=== PATIENT | female | born 1995 | race Caucasian/White ===

== ENCOUNTER 2023-03-22 08:54 | Outpatient (CLI) | payer MEDICAID, SELFPAY ==
--- NOTE | 2023-03-22 09:15 | CRLHL7_ITS ---
For Patients: As a result of the Cures Act, medical imaging exams and procedure reports are released immediately into your electronic medical record. You may view this report before your referring provider. If you have questions, please contact your health care provider. INDICATION: First trimester scan, establish dates. COMPARISON: None. TECHNIQUE: Real-time taylor-scale imaging of the pelvis was performed. FINDINGS: Sonographic imaging demonstrates a single living intrauterine gestation. The embryo demonstrates a regular cardiac rate measuring 171 beats per minute. The embryo`s crown-rump length measurement of 2.2 cm corresponds to a gestational age of 8 weeks 6 days with a sonographic due date of 10/26/2023. There is a normal-appearing yolk sac. There are no gross abnormalities noted within the embryo at this early state of development. The gestational sac has a normal appearance. There is a 1.6 x 0.6 x 0.5 cm perigestational hemorrhage. The amount of fluid within the sac appears appropriate for gestational age. The cervix is closed. The myometrium appears normal. The ovaries are of normal size. Corpus luteal cyst left ovary measuring 2.3 cm. There are no suspicious fluid collections noted in the cul-de-sac. IMPRESSION: Single living intrauterine with sonographic gestational age 8 weeks 6 days and sonographic due date 10/26/2023. Small perigestational hemorrhage measuring 1.6 x 0.6 x 0.5 cm. Dictated by Rell Krause MD @ 03/22/2023 11:15:11 AM (Electronically Signed)
== END 2023-03-22 08:55 | disposition home or self-care (01) ==
LOC: US 08:55
PROVIDERS: Visit Provider Registered Nurse
DX: Z34.91 Encounter for supervision of normal pregnancy, unspecified, first trimester (principal); O20.9 Hemorrhage in early pregnancy, unspecified; Z3A.08 8 weeks gestation of pregnancy
CPT/HCPCS: 76817; 82565; 82570; 84156; 84450; 84460; 84520; 86592; 86703; 86762; 86787; 86850; 86900; 86901; 87086; 87491; 87591

== ENCOUNTER 2023-03-22 09:54 | Outpatient (CLI) | payer MEDICAID, SELFPAY ==
[2023-03-22 15:10] LABS: Chlamydia DNA Amplified* NOT DETECTED (No Detected); GC DNA Amplified* NOT DETECTED (No Detected)
== END 2023-03-22 09:55 | disposition home or self-care (01) ==
PROVIDERS: Visit Provider Registered Nurse
DX: Z34.91 Encounter for supervision of normal pregnancy, unspecified, first trimester (principal); Z3A.09 9 weeks gestation of pregnancy
CPT/HCPCS: 82565; 82570; 84156; 84450; 84460; 84520; 86592; 86703; 86762; 86787; 86803; 86850; 86900; 86901; 87086; 87340; 87491; 87591

== ENCOUNTER 2023-06-07 08:05 | Outpatient (CLI) | payer MEDICAID, SELFPAY ==
--- NOTE | 2023-06-07 08:15 | CRLHL7_ITS ---
For Patients: As a result of the Century Cures Act, medical imaging exams and procedure reports are released immediately into your electronic medical record. You may view this report before your referring provider. If you have questions, please contact your health care provider. INDICATION: Evaluate anatomy. COMPARISON: 03/22/2023 TECHNIQUE: Real time taylor scale imaging of the fetus was performed as well as color Doppler analysis of the umbilical vessels. FINDINGS: Sonographic imaging demonstrates a single living intrauterine gestation. Fetus demonstrates a regular cardiac rate of 141 beats per minute. Fetus has a breech position. The placenta lies anterior without evidence of placenta previa. The placenta lies 7.5 cm from the internal cervical os. Amniotic fluid volume appears normal. Single deepest vertical pocket: 6.5 cm. The cervix is closed and measures 4.4 cm in length. The composite ultrasound gestational age is calculated at 20 weeks 0 days with an estimated sonographic due date of 10/25/2023. The estimated weight is 337 grams which lies at the 64th %. The following biometric measurements were obtained: Biparietal diameter: 4.4 cm/19 weeks 3 days 29th% Head circumference: 17.2 cm/19 weeks 5 days 37th% Abdominal circumference: 15.3 cm/20 weeks 4 days 67th% Femur length: 3.2 cm/19 weeks 6 days 45th% The HC/AC ratio measures: 1.12 range (1.08-1.25) On anatomic survey, there is a normal appearance of the cerebral ventricles, cavum septi pellucidi, cisterna magna and cerebellum. The nose, lips, and facial profile appear normal. The cervical, thoracic and lumbar spine are well visualized and appear normal. There is a normal four-chamber heart view and the left and right ventricular outflow tracts appear normal. The diaphragm and stomach appear normal. The kidneys and bladder also appear normal. There is a normal three-vessel cord and cord insertion site. The four extremities appear normal. IMPRESSION: Normal OB ultrasound exam with concordance of clinical and sonographic dating. No intrinsic abnormalities noted on anatomic survey. Dictated by Rell Krause MD @ 06/10/2023 11:43:54 AM (Electronically Signed)
== END 2023-06-07 08:06 | disposition home or self-care (01) ==
LOC: US 08:06
PROVIDERS: Visit Provider Obstetrics & Gynecology
DX: Z34.92 Encounter for supervision of normal pregnancy, unspecified, second trimester (principal); Z3A.20 20 weeks gestation of pregnancy
CPT/HCPCS: 76805

== ENCOUNTER 2023-08-02 08:31 | Outpatient (CLI) | payer OTHER, SELFPAY | END 2023-08-02 08:32 | disposition home or self-care (01) | LOC: NFLDREF 08-06 09:31 | PROVIDERS: Visit Provider Obstetrics & Gynecology | DX: Z34.90 Encounter for supervision of normal pregnancy, unspecified, unspecified trimester (principal) | CPT/HCPCS: 86592 ==

== ENCOUNTER 2023-09-26 16:22 | Outpatient (CLI) | payer OTHER, SELFPAY ==
[2023-09-26] VITALS (7 sets, daily range): BP systolic 120–133; BP diastolic 75–82; PULSE 80–83; TEMP 36.6; O2SAT 94
[2023-09-26 17:21] LABS: Total Protein Urine 12 mg/dL
[2023-09-26 17:22] LABS: Creatinine Urine 67.8 mg/dL
[2023-09-26 17:41] LABS: Aspartate Amino Transferase* 25 U/L (12-35); Creatinine* 0.4 mg/dL (0.5-1.5); Estimated Glomerular Filt Rate 136 ml/min; Hematocrit 34.6 % (33.0-51.0); Mean Corpuscular HGB Conc 35 gm/dL (32-36); Mean Corpuscular Hemoglobin 33 pg (26-34); Mean Corpuscular Volume 95 fL (80-100); Platelet Count* 201 K/uL (140-440); Red Blood Count 3.64 m/uL (4.00-5.20); White Blood Count* 13.55 K/uL (4.50-11.00)
[2023-09-26 17:42] LABS: Alanine Aminotransferase* 11 U/L (4-35); Blood Urea Nitrogen* 8 mg/dL (5-24)
[2023-09-26 17:51] LABS: Slide Review Reflex No
--- NOTE | 2023-09-30 22:33 | PC.OBNST ---
NST Note NST Note Start: 09/30/23 22:27 Freq: Status: Active Protocol: Document 09/26/23 19:00 MMB (Rec: 09/30/23 22:32 MMB [id number]) NST Note 2 Para (# of births) 1 EDC 10/26/23 Gestational Age In Weeks & Days 36 Weeks & 2 Days Patient Presented with Complaint(s) of Pain If Pain, describe location Right upper quadrant Reactive Yes Appropriate for Gestational Age Yes RN Braxton Romo RN Date 09/26/23 Reactive Yes Appropriate for Gestational Age Yes KYE Morrison RN Date 09/26/23 OB NST charge Yes Complete NST Note via Write Note Yes The provider's electronic signature indicates the NST is reactive/appropriate for gestational age. *Note to provider: If an addendum is required, open the patient's chart and click on the note under the Nurse/Allied Health tab.
== END 2023-09-26 19:10 | disposition home or self-care (01) ==
LOC: OB OUT 16:23 → OB 16:31
PROVIDERS: Visit Provider Obstetrics & Gynecology
DX: O47.03 False labor before 37 completed weeks of gestation, third trimester (principal); Z3A.36 36 weeks gestation of pregnancy
CPT/HCPCS: 36415; 59025; 82565; 82570; 84156; 84450; 84460; 84520; 85027; 99213

== ENCOUNTER 2023-10-02 11:57 | Outpatient (CLI) | payer OTHER, SELFPAY ==
[2023-10-03 21:18] LABS: Strep B DNA Probe Negative (Negative)
[2023-10-03 21:19] LABS: Strep B Susceptibility Needed? No
== END 2023-10-02 11:58 | disposition home or self-care (01) ==
LOC: NFLDREF 11:57
PROVIDERS: Visit Provider Obstetrics & Gynecology
DX: Z34.90 Encounter for supervision of normal pregnancy, unspecified, unspecified trimester (principal)
CPT/HCPCS: 87081; 87653

== ENCOUNTER 2023-10-21 05:03 | Inpatient (IN) | payer OTHER, SELFPAY ==
[2023-10-21] VITALS (30 sets, daily range): BP systolic 103–131; BP diastolic 59–91; PULSE 52–88; RESP 16–18; TEMP 36.3–36.7; O2SAT 96–99; BMI 34.1
[2023-10-21] MEDS: LACTATED RINGERS 1000 ML 1,000 ML 225 ML IV (05:52)
[2023-10-21] MEDS: SCOPOLAMINE 1 MG/3 DAY PATCH 1 PATCH TRANSDERMA (05:54)
[2023-10-21 06:02] LABS: Basophils Percent Auto 0.2 % (0.0-3.0); Eosinophils Percent Auto 1.3 % (0.0-7.0); Hematocrit 38.9 % (33.0-51.0); Hemoglobin* 13.1 gm/dL (12.0-16.0); Immature Granulocytes Pct Auto 1.3 %; Lymphocytes Percent Auto 15.1 % (20-44); Mean Corpuscular HGB Conc 34 gm/dL (32-36); Mean Corpuscular Hemoglobin 32 pg (26-34); Mean Corpuscular Volume 95 fL (80-100); Monocytes Percent Auto 5.3 % (0.0-11.0); Neutrophils Percent Auto 76.8 % (42.0-72.0); Platelet Count* 193 K/uL (140-440); RDW Coefficient of Variation % 11.9 % (11.5-15.5); Red Blood Count 4.08 m/uL (4.00-5.20); Slide Review Reflex No; White Blood Count* 14.79 K/uL (4.50-11.00)
--- NOTE | 2023-10-21 07:00 | P.OBHP_ITS ---
OB - H&P: HPI History of Present Illness Chief complaint: CSection Narrative: Kristy Silva is a 28 year old female here at 39w2d for scheduled repeat delivery. Her full H&P was dictated by me on 10/02/2023, please see note for full details. Active movement. Denies LOF, vaginal bleeding or abnormal vaginal discharge. Some [place] contractions. Specific Issues/Plans G 2 P 1001 Boyfriend: Rico. Son: Michael. Baby: Boy! [place] name. 1. History of due to arrest of dilation * Desires repeat section - scheduled 10/22 2. History of gestational hypertension Baseline preeclampsia labs drawn today. BUN 7, Creatinine low at 0.4 , AST 56.., ALT 16, P/C ratio 0.20. AST on 04/19/23 20. Recommend daily baby aspirin starting at 12 weeks 3. Father of baby with sister who had a baby with a fatal trisomy abnormality. * 04/19/2023: No increased risk for aneuploidy, male. 4. Cervical dysplasia * History of abnormal paps with multiple colposcopies. * 03/22/2023: HSIL with +HPV (other type) * Colposcopy and biopsy at 19w6d: 2 biopsies. One not sufficient for evaluation, 2nd was benign * Colposcopy in 3rd trimester: 08/13 with Suppes, insufficient but consistent with previous colpo, no bx * Treatment : [] * Gardasil : [] 5. Secondary cellulitis from a bug bite, left lateral ankle (08/02) Treated with cephalexin COVID: Completed, not boosted. Recommended. Tdap: Given, 08/30/23 Flu: Declined RSV: Declined H&P: 10/02/[address] Key Review of Systems Status of ROS: Reports: 6 or more systems reviewed and unremarkable except as noted in History and below [facility] Medical History (Updated 10/21/23 @ 07:18 by Lianna Key MD) History of abnormal cervical Pap smear ?Z87.42 - Personal history of other diseases of the female genital tract (ICD-10) Gestational hypertension ?O13.9 - Gestational [-induced] hypertension without significant proteinuria, unspecified trimester (ICD-10) Surgical History S/P section ?Z98.891 - History of uterine scar from previous surgery (ICD-10) Family History Family/Other Trisomy Social History What is your current living situation?: I presently have a place to live Problems where you live: no known problems In the past 12 months, utilities in danger of being shut off: no In past 12 months, lack of transportation kept you from medical appts, meetings, work, or getting things needed for daily living: no In the past 12 mos, have been you worried that your food would run out before you had money to buy more?: never true In the past 12 mos, the food you bought just didn't last and you didn't have money to buy more?: never true Smoking Status: Never smoker How often does anyone, including family, friends and others, physically hurt you : never How often does anyone, including family, friends and others, insult or talk down to you: never How often does anyone, including family, friends and others, threaten you with harm: never How often does anyone, including family, friends and others, scream or curse at you: never Little interest or pleasure in doing things: not at all Feeling down, depressed, or hopeless: not at all Meds Home Medications and Allergies Home Medications Medication Instructions Recorded Confirmed Type docosahexaenoic acid 200 mg 200 mg PO DAILY 03/22/23 10/21/23 History capsule ( DHA) docusate sodium 100 mg capsule 100 mg PO BID PRN 03/22/23 10/21/23 History (Colace) aspirin 81 mg tablet,delayed 81 mg PO QDAY 04/19/23 10/21/23 History release Allergies Allergy/AdvReac Type Severity Reaction Status Date / Time No Known Drug Allergies Allergy Verified 10/11/23 09:23 OB - H&P: Exam Physical Exam: Vital signs: Temp Pulse Resp BP 98.0 F 88 16 122/75 10/21/23 06:04 10/21/23 05:51 10/21/23 06:04 10/21/23 05:51 Narrative: Physical exam: General: No acute distress Psych: Alert and oriented x3, full affect HEENT: Normocephalic, atraumatic Lungs: Unlabored breathing Neuro: No focal deficit. Mentating appropriately Abdomen: Gravid. Cephalic presentation. Soft, nontender. No distension, rebound or guarding Pelvic exam: Deferred OB - Results Labs Labs: Short CBC 10/21/23 Range/Units 05:40 WBC 14.79 H (4.50-11.00) K/uL Hgb 13.1 (12.0-16.0) gm/dL Hct 38.9 (33.0-51.0) % Plt Count 193 (140-440) K/uL Assessment and Plan Assessment and plan (1) : Status: Acute (2) History of abnormal cervical Pap smear: Problem comment: History of abnormal pap: Yes: May 2019 colposcopy: Benign for a Pap that was ASC-H. December 2020: Pap smear: NIL, negative HPV. 03/22/23: HSIL, +HPV other types Status: Acute Plan CS Consent The patient was consented for section and blood. She understands that the three main categories of risk include bleeding, infection, and damage to surrounding structures. Regarding infection, she understands that we will be delivering appropriate antibiotics, however that the risk of infection following section still is approximately 5%. She understands that though the risk is very low that there is always a risk of damage to the bladder, uterus, ovaries, fallopian tubes, bowels, ureters, or even the fetus. She understands that most injuries can be addressed at the time of surgery, however, such an injury may require additional surgeries to fix. Lastly, she understands that a section carries a risk of bleeding, and that while this bleeding can be addressed with multiple medical and surgical modalities, that there is the possibility of needing a blood transfusion. She reports she would accept a blood transfusion understanding the risks of a 1/200,000 risk of Hepatitis and 1/2,000,000 risk of HIV as well as the risk of having an allergic reaction to the blood products. She further understands that this reaction is typically mild, however can be severe including respiratory distress and necessitating ICU-level care. Lastly, she understands that a section does increase risks for future pregnancies and deliveries including, but not limited to, the risk of uterine rupture or placenta accreta. - Hgb/plt on 10/21/2023: 13.193 - Plan: will proceed with scheduled repeat CD
--- NOTE | 2023-10-21 07:20 | PM.OBPRCCS ---
OB Delivery Proc Additional Procedures Procedure Details: DELIVERY BY SECTION Date of Service: 10/21/2023 Delivery time: 0752 Summary: Admitted for scheduled repeat delivery at 39 weeks 2 days, repeat lower uterine transverse section, Pfannenstiel, Closed with suture, QBL 536 cc, no complications, Findings: Minimal filmy adhesions, normal uterus, bilateral ovaries and tubes 8,9 Weight 3565 g Primary Indication: Previous delivery x1 Declined TOLAC Procedures: Repeat lower uterine transverse section Specimens Removed: Placenta Surgeon: Lianna Key MD Explosives Truck Driver Surgeon: None Anesthesia: Spinal, TAP Report: Prophylactic antibiotic, 2 g of Ancef was given before incision. After arrival to the operating room patient was placed in the supine position with left lateral tilt after administration of spinal anesthesia. Laparotomy A pfannenstiel incision was made through the anterior abdominal wall with #10 scalpel approximately 2 cm above the pubic symphysis. The incision was extended sharply with the #10 scalpel through the subcutaneous tissue to the level of fascia. The fascia was entered sharply with a #10 scalpel (Pfannenstiel) in the midline and extended in semi-elliptical fashion with Leiva scissor. The underlying muscles were dissected off the overlying fascia by grasping the superior aspect of fascia with two iman clamps and blunt and sharp dissection were used along the midline. The fascia was further from rectus muscle with Leiva scissor and/or cautery. In similar fashion, the lower aspect of fascia was also grasped with two Iman clamps and both blunt and sharp dissection was used to separate fascia from rectus muscle. The rectus muscles were in the midline bluntly with digits. The peritoneum was then entered sharply with Emily and Metsheba. The peritoneal incision was then extended superiorly and inferiorly under direct visualization with care being taken to avoid bladder and bowel. Minimal filmy adhesions were noted. The peritoneal incision was enlarged bluntly by lateral traction from the surgeon's and assistant men's soccer coach's hand. Melchor retractor was inserted into the abdomen. Delivery A bladder flap was developed by grasping with American forcep and enter with Metzenbaun scissor. Then sharp and blunt dissection with Metzenbaum scissor and fingers were performed. A low transverse hysterotomy was made then with #10 scalpel and extended laterally and cephalad with fingers in a low transverse fashion with Manu Mancini technique with care being taken to avoid injury to the fetus. The amniotic cavity (membrane) was then entered with spontaneous rupture of membrane, and the amniotic fluid was noted to be clear, fetus was delivered cephalic. With delivery of the baby, no extension was noted. Placenta was delivered spontaneously with steady traction on cord and manual separation of placenta from uterine wall. Closure Uterine cavity was cleaned after placental delivery with lap sponge x 3. The hysterotomy was closed in two layers with stitches using 0 vicryl with continuous locking stitches and a 2nd imbricating layer with 0 Monocryl. Hemostasis was achieved as needed with electrocautery. The ovaries/tubes/uterine surface were evaluated. They were found to be normal. Melchor retractor removed and hemostasis was confirmed again. Fascia was closed with running stitches using 0 PDS. Subcutaneous layer was irrigated. Hemostasis was checked for and found to be adequate. The subcutaneous layer was closed with running 2-0 Vicryl sutures. The skin was closed with monocryl subcuticular sutures . The incision was cleaned and covered with Exofin and Mepilex dressing and the procedure considered terminate at this time. Intraoperative Complications: None QBL: 536 cc Uterotonics: 40u of pitocin Disposition: The patient tolerated the procedure well. She was recovered in Obstetric PACU for close monitoring in stable condition, with a contracted uterus and normal transvaginal bleeding. The was sent to mother?s bedside. The placenta was not sent to pathology. Debrief with OR team performed at the conclusion of the procedure. Procedure Time Seen by Provider: 07:20 Date of procedure: 10/21/23 Procedure Done: Global Will [facility] bill your pro fee for this procedure?: Yes Blood Loss Measurement Type: QBL (536) Bakri Used: No Urine Output (mL): 250 Surgeon: Lianna Key MD Anesthesia Type: Spinal Pathology: none sent Surgery Debrief Performed: Yes Condition: stable Disposition: floor
[2023-10-21] MEDS: CEFAZOLIN 2 GM INJ IVP (07:29)
[2023-10-21] MEDS: LACTATED RINGERS 1000 ML 1,000 ML 125 ML IV ×2 (07:45→13:46)
--- NOTE | 2023-10-21 08:52 | W.ANESCHARGE ---
Anesthesia Charges Start Date/Time Anesthesia Start Date: 10/21/23 Anesthesia Start Time: 07:24 Stop Date/Time Anesthesia Stop Date: 10/21/23 Anesthesia Stop Time: 08:49
--- NOTE | 2023-10-21 10:32 | W.PM.NB ---
Nerve Block Nerve Block Time Seen by Provider: 08:40 Date Seen: 10/21/23 Type of block requested by surgeon for post-operative analgesia: TAP Side: bilateral Time out performed: Yes Verification of patient name: Yes Verification of date of : Yes Site marking: site marked Name of person performing procedure: Radames Continuous monitoring Was continuous monitoring of O2 sat, B/P, farm equipment maintenance supervisor, recorded every 15 minutes?: Yes Procedure Checklist: sterile prep, needles and gloves Ultrasound guided. Images saved: Yes Medications given in 5ml increments after negative aspiration: Marcaine %: 0.25 mL: 30 Needle gauge: 20 and Exparel mL: 10 Patient tolerated procedure well: Yes Additional comments: Needle noted adjacent to nerve Block Charges Block Charge (with Pro Fee): TAP Bilateral Use of Ultrasound Machine for Block: Yes- US Guidance/pain block
--- NOTE | 2023-10-21 10:32 | W.ANESCHARGE ---
Anesthesia Charges Start Date/Time Anesthesia Start Date: 10/21/23 Anesthesia Start Time: 07:24 Stop Date/Time Anesthesia Stop Date: 10/21/23 Anesthesia Stop Time: 08:49
[2023-10-21] MEDS: miSOPROStoL 800 MCG/4 TABLET PR (10:38)
[2023-10-21] MEDS: OXYTOCIN 30 unit/500 ML in NS 30 UNIT/500 ML BAG 200 UNIT IVPB (10:55)
[2023-10-21] MEDS: diphenhydrAMINE 50 MG/ML inj 12.5 MG IVP (13:52)
[2023-10-21] MEDS: SODIUM CHLORIDE 0.9 % (FLUSH) 10 ML SYRINGE IVF ×2 (13:53→14:50)
[2023-10-21] MEDS: KETOROLAC 30 MG/ML inj IVP ×2 (14:49→20:51)
[2023-10-22] VITALS (10 sets, daily range): BP systolic 110–123; BP diastolic 71–78; PULSE 68–87; RESP 16–18; TEMP 36.6–36.8; O2SAT 97–98
[2023-10-22] MEDS: KETOROLAC 30 MG/ML inj IVP (02:44)
[2023-10-22 07:05] LABS: Hemoglobin* 9.7 gm/dL (12.0-16.0)
--- NOTE | 2023-10-22 07:25 | PM.OBDSVD1 ---
DS: Providers Provider Date Seen: 10/22/23 Date of admission: 10/21/23 05:03 Primary care physician: Not a Local Provider Admitting Clinician: Lianna Key MD Attending Physician on discharge: Amy Josue CNM Date of Discharge: 10/22/23 DS: Diagnosis Discharge Diagnosis (1) care and examination immediately after delivery: Status: Acute (2) Lactating mother: Status: Acute Exam Narrative: Exam Narrative: VSS. ?AfebrileGENERAL APPEARANCE: ?normal affect, alert, no distress MOOD: ?appropriate HEENT: normocephalic, neck supple, full ROM CHEST: ?Symmetrical chest wall movement. ?Normal respiratory effort. ?Clear to auscultation HEART: ?regular rate and rhythm ABDOMEN: ?soft, non-tender. Uterine fundus is firm, at Umbilicus, Midline and is appropriate for the stage of recovery. ?Bowel sounds present. EXTREMITIES: ?normal and trace edema SKIN: warm, dry. ? ?Incision clean/dry/well approximated. ?No signs of infection noted. Const: Vital Signs, click to edit/add: Vital Signs - 24 hr 10/21/23 08:47 10/21/23 08:52 10/21/23 08:57 Temperature 97.5 F L Pulse Rate 59 L 61 59 L Pulse Rate [Pulse Oximeter] Respiratory Rate 16 16 16 Blood Pressure 113/76 122/71 110/68 Blood Pressure [Ri ght Arm] Pulse Oximetry 97 98 97 Oxygen Delivery Me thod Room Air Room Air Room Air 10/21/23 09:02 10/21/23 09:07 10/21/23 09:12 Temperature Pulse Rate 61 57 L 59 L Pulse Rate [Pulse Oximeter] Respiratory Rate 16 16 16 Blood Pressure 131/91 H 109/68 111/70 Blood Pressure [Ri ght Arm] Pulse Oximetry 98 98 98 Oxygen Delivery Me thod Room Air Room Air Room Air 10/21/23 09:17 10/21/23 09:32 10/21/23 09:48 Temperature 97.3 F L 97.3 F L Pulse Rate 61 Pulse Rate [Pulse Oximeter] 58 L 57 L Respiratory Rate 16 16 16 Blood Pressure 103/66 Blood Pressure [Ri ght Arm] 119/70 108/61 Pulse Oximetry 98 98 99 Oxygen Delivery Me thod Room Air 10/21/23 10:02 10/21/23 10:18 10/21/23 10:32 Temperature Pulse Rate Pulse Rate [Pulse Oximeter] 56 L 55 L 52 L Respiratory Rate 16 16 16 Blood Pressure Blood Pressure [Ri ght Arm] 110/70 106/64 107/68 Pulse Oximetry 99 97 96 Oxygen Delivery Me thod 10/21/23 10:47 10/21/23 11:02 10/21/23 11:17 Temperature 97.3 F L Pulse Rate Pulse Rate [Pulse Oximeter] 58 L 62 59 L Respiratory Rate 16 16 16 Blood Pressure Blood Pressure [Ri ght Arm] 109/73 114/78 109/73 Pulse Oximetry 97 96 98 Oxygen Delivery Me thod 10/21/23 11:51 10/21/23 12:48 10/21/23 12:51 Temperature 97.5 F L Pulse Rate Pulse Rate [Pulse Oximeter] 58 L Respiratory Rate 16 18 16 Blood Pressure Blood Pressure [Ri ght Arm] 111/73 Pulse Oximetry 98 Oxygen Delivery Me thod 10/21/23 13:51 10/21/23 14:51 10/21/23 15:51 Temperature Pulse Rate Pulse Rate [Pulse Oximeter] Respiratory Rate 16 16 18 Blood Pressure Blood Pressure [Ri ght Arm] Pulse Oximetry Oxygen Delivery Me thod 10/21/23 16:04 10/21/23 16:51 10/21/23 17:51 Temperature 97.6 F Pulse Rate Pulse Rate [Pulse Oximeter] 74 Respiratory Rate 18 18 18 Blood Pressure Blood Pressure [Ri ght Arm] 106/72 Pulse Oximetry 96 Oxygen Delivery Me thod Room Air 10/21/23 20:51 10/21/23 20:57 10/21/23 21:51 Temperature 98.1 F Pulse Rate Pulse Rate [Pulse Oximeter] 80 Respiratory Rate 18 18 18 Blood Pressure Blood Pressure [Ri ght Arm] 104/59 L Pulse Oximetry 98 Oxygen Delivery Me thod Room Air 10/21/23 22:51 10/22/23 00:05 10/22/23 00:26 Temperature 98.2 F Pulse Rate Pulse Rate [Pulse Oximeter] 68 Respiratory Rate 16 16 18 Blood Pressure Blood Pressure [Ri ght Arm] 110/71 Pulse Oximetry Oxygen Delivery Me thod Room Air 10/22/23 00:57 10/22/23 01:51 10/22/23 02:51 Temperature Pulse Rate Pulse Rate [Pulse Oximeter] Respiratory Rate 16 16 16 Blood Pressure Blood Pressure [Ri ght Arm] Pulse Oximetry Oxygen Delivery Me thod 10/22/23 03:44 10/22/23 03:51 10/22/23 04:51 Temperature 97.9 F Pulse Rate Pulse Rate [Pulse Oximeter] 87 Respiratory Rate 18 18 18 Blood Pressure Blood Pressure [Ri ght Arm] 118/74 Pulse Oximetry 98 Oxygen Delivery Me thod Room Air 10/22/23 06:51 Temperature Pulse Rate Pulse Rate [Pulse Oximeter] Respiratory Rate 18 Blood Pressure Blood Pressure [Ri ght Arm] Pulse Oximetry Oxygen Delivery Me thod Documenting provider has reviewed patient's vital signs: yes OB - DS: Summary Hospital Course Hospital Course: Kristy is a 28 y.o. who was admitted to [facility] for a repeat section. ?She had an uncomplicated .?The patient feels well. ?The pain is well controlled with current medications. ?She has no new complaints. ?She is breast feeding and reports things are going well.? the patient has done well.? Vitals have been stable.? She has remained afebrile.? Has a good appetite, is tolerating a general diet. ?She is voiding without difficulty.? She is passing gas and has not had a bowel movement.? She is ambulating and denies any dizziness.? Has Small amount of rubra lochia. ?She is planning NFP for prevention. She is desiring a 24 hour discharge. Peripartum Data delivery method: Repeat Section Procedures: Procedures Operation Date: 10/21/23 07:15 Actual Procedure Side Surgeon p Repeat Section Not Applicable Liannasindy Key MD complications: none [place] Infant Gender: Male Infant Discharge Plan: Home Status at Discharge Functional status at discharge: independent ambulation Overall status at discharge: patient is progressing back to baseline Time Spent with Patient Time attestation: Total time spent providing and/or coordinating discharge services: Time spent: Less than 30 minutes Discharge Plan Discharge Disposition: Home, Self-Care Date of Admission: 10/21/23 05:03 Attending Provider on Discharge: Amy Josue Primary Care Provider: Provider,Not a Local Condition: Stable Anticipated Discharge Date/Time: 10/22/23 12:00 Discharge Medications: New acetaminophen 500 mg Tablet 1,000 mg PO Q6H PRN (Reason: Pain) Qty: 0 0RF docusate sodium 100 mg Capsule 100 mg PO DAILY Qty: 90 1RF ibuprofen 600 mg Tablet 600 mg PO Q6H PRN (Reason: Pain) Qty: 60 0RF oxycodone 5 mg Tablet 5 - 10 mg PO Q4H PRN (Reason: Pain) Qty: 10 0RF ferrous sulfate 325 mg (65 mg iron) tablet 325 mg PO Q OTHER DAY Qty: 60 1RF Continued DHA 200 mg capsule 200 mg PO DAILY Discontinued docusate sodium [Colace] 100 mg capsule 100 mg PO BID PRN aspirin 81 mg tablet,delayed release (DR/EC) 81 mg PO QDAY Discharge Orders: Discharge Order (Routine); Ordered 10/22/23 Ordered By: Amy Josue Patient Education: OB Over the Counter Medication Information, OB /Breast Feeding Additional Instructions: Discharge instructions were reviewed with the patient including signs and symptoms of infection and home going medications Lifting Restrictions: 20 pounds for 6 weeks No not submerge incision under water X 2 weeks? Nothing vaginally for 6 weeks: no tampons or intercourse Do not drive while taking narcotic pain medication(s) Off Work or School for 6 weeks 2-week visit: incision check, discuss feeding concerns, review control options and screen for anxiety/depression. 6-week visit for an annual exam. consultation services are available to all mothers and babies for the first year after delivery.? To make an appointment, please call [phone]. Activity Level: Activity as Tolerated Discharge Diet: Regular Follow Up Appointments: Provider,Not a Local [Primary Care Provider] - [facility] [Provider Group] Forms: pinion-pins Info Instructions
[2023-10-22] MEDS: ACETAMINOPHEN 500 MG TABLET 1000 MG PO (07:38)
[2023-10-22] MEDS: DOCUSATE SODIUM 100 MG CAPSULE PO (07:38)
[2023-10-22] MEDS: FERROUS SULFATE 325 MG TABLET PO (09:30)
[2023-10-22] MEDS: IBUPROFEN 600 MG TABLET PO (10:29)
--- NOTE | 2023-10-22 13:56 | PM.ANPOST ---
Post Anesthesia Note Post Anesthesia Note Patient seen: Inpatient Respiratory Status: adequate Cardiovascular Status: adequate Mental Status: baseline Pain: adequate Temp: baseline Anesthetic awareness: N/A Complications: none Follow care: none
== END 2023-10-22 10:50 | disposition home or self-care (01) | DRG 788 ==
PROVIDERS: Admitting Provider Obstetrics & Gynecology; Visit Provider Obstetrics & Gynecology
PROC: (CPT 59514; principal; 2023-10-21 07:15)
DX: O34.211 Maternal care for low transverse scar from previous cesarean delivery (principal); G89.18 Other acute postprocedural pain; Z3A.39 39 weeks gestation of pregnancy; Z37.0 Single live birth
CPT/HCPCS: 01961; 36415; 64488; 76942; 85018; 85025; 86850; 86900; 86901; A9270; C9290; J0665; J0690; J1200; J1885; J2274; J2371; J2405; J2590; J7120

== ENCOUNTER 2023-10-25 13:19 | Outpatient (CLI) | payer OTHER, SELFPAY | END 2023-10-25 13:20 | disposition home or self-care (01) | LOC: NFLDREF 10-26 10:06 | PROVIDERS: Visit Provider Obstetrics & Gynecology | DX: R39.9 Unspecified symptoms and signs involving the genitourinary system (principal) | CPT/HCPCS: 87086 ==

== ENCOUNTER 2024-06-12 09:37 | Outpatient (CLI) | payer MEDICAID, SELFPAY | END 2024-06-12 09:38 | disposition home or self-care (01) | PROVIDERS: Visit Provider Physician Assistant | DX: Z01.419 Encounter for gynecological examination (general) (routine) without abnormal findings (principal); N92.0 Excessive and frequent menstruation with regular cycle; R74.01 Elevation of levels of liver transaminase levels; Z87.42 Personal history of other diseases of the female genital tract; Z13.6 Encounter for screening for cardiovascular disorders; Z13.1 Encounter for screening for diabetes mellitus | CPT/HCPCS: 80061; 82947; 84443 ==

== ENCOUNTER 2024-06-19 10:43 | Outpatient (CLI) | payer MEDICAID, SELFPAY ==
--- NOTE | 2024-06-19 11:00 | CRLHL7_ITS ---
For Patients: As a result of the Century Cures Act, medical imaging exams and procedure reports are released immediately into your electronic medical record. You may view this report before your referring provider. If you have questions, please contact your health care provider. INDICATION: excessive and frequent menstruations COMPARISON: none TECHNIQUE: 2D taylor scale and color Doppler images were acquired of the pelvis using a transabdominal and transvaginal approach. FINDINGS: Sonographic images demonstrate a normal size and smooth outer contour of the uterus. Uterus measures 8.4 cm in length by 3.7 cm in AP diameter by 6.1 cm in transverse dimension. section scar noted. The endometrial lining is heterogeneous measures 14 mm in composite thickness. A small amount of endometrial fluid is present. The right ovary measures 4.1 x 1.9 x 3.0 cm in size and the left ovary measures 3.2 x 2.1 x 3.0 cm. The ovaries demonstrate normal arterial and venous blood flow on color Doppler analysis. There are no suspicious fluid collections within the cul-de-sac. IMPRESSION: Heterogeneous endometrium measuring up to 14 millimeters. Small amount of endometrial fluid noted. No uterine fibroid. Dictated by Rell Krause MD @ 06/19/2024 10:21:54 PM (Electronically Signed)
== END 2024-06-19 10:44 | disposition home or self-care (01) ==
LOC: US 10:43
PROVIDERS: Visit Provider Physician Assistant
DX: N92.0 Excessive and frequent menstruation with regular cycle (principal); R93.89 Abnormal findings on diagnostic imaging of other specified body structures
CPT/HCPCS: 76830; 76856

== ENCOUNTER 2025-08-06 08:57 | Outpatient (CLI) | payer BC, SELFPAY ==
[2025-08-10 14:55] LABS: Pap Test Digital Imaging Done
[2025-08-11 01:27] LABS: HPV Source Cervical
== END 2025-08-06 08:58 | disposition home or self-care (01) ==
PROVIDERS: Visit Provider Physician Assistant
DX: Z12.4 Encounter for screening for malignant neoplasm of cervix (principal); N92.0 Excessive and frequent menstruation with regular cycle
CPT/HCPCS: 84443; 87624; 87625; 88141; 88142; 88175